=== PATIENT | female | born 1960 | race African-American/Black ===

== ENCOUNTER 2017-07-08 10:57 | Emergency (ER) | payer MEDICAID ==
[~2017-07-08] VITALS: Ht 160 cm; Wt 87.3 kg
[2017-07-08] MEDS ORDERED: ANTI-HYPERTENSIVE PO (11:06)
[2017-07-08] MEDS ORDERED: STATIN PO (11:06)
[2017-07-08 12:30] VITALS: BP 125/82
[2017-07-08] MEDS ORDERED: KETOROLAC TROMETHAMINE 30 MG/ML VIAL IVP ONE (12:45)
== END 2017-07-08 13:36 | disposition home or self-care (01) ==
LOC: EMS 10:58
DX: S42.332A Displaced oblique fracture of shaft of humerus, left arm, initial encounter for closed fracture (principal); I10 Essential (primary) hypertension; E78.00 Pure hypercholesterolemia, unspecified; Z79.899 Other long term (current) drug therapy; W01.0XXA Fall on same level from slipping, tripping and stumbling without subsequent striking against object, initial encounter; Y93.89 Activity, other specified; Y92.098 Other place in other non-institutional residence as the place of occurrence of the external cause; Y99.8 Other external cause status
CPT/HCPCS: 29105; 73030; 73060; 96374; 99284; J1885